=== PATIENT | female | born 1985 | race African-American/Black ===

== ENCOUNTER 2019-12-16 17:34 | Outpatient (CLI) | payer OTHER ==
[~2019-12-16] VITALS: Ht 193 cm; Wt 117.3 kg
[2019-12-16 18:10] VITALS: BP 128/76
[2019-12-16] MEDS ORDERED: PREN1TAB60 PO (19:23)
== END 2019-12-16 19:36 | disposition home or self-care (01) ==
LOC: LDOP 17:34
PROVIDERS: ATTEND Obstetrics & Gynecology
DX: O09.93 Supervision of high risk pregnancy, unspecified, third trimester (principal); O46.93 Antepartum hemorrhage, unspecified, third trimester; Z3A.37 37 weeks gestation of pregnancy
CPT/HCPCS: 59025

== ENCOUNTER 2019-12-23 13:41 | Inpatient (IN) | payer OTHER ==
[~2019-12-23] VITALS: Ht 193 cm; Wt 116.3 kg
[~2019-12-23 13:41] MED LIST: PREN1TAB60 PO
[2019-12-23 13:45] VITALS: BP 118/74
[2019-12-23] MEDS ORDERED: NEWBORN KIT ONE (17:15)
[2019-12-23] MEDS ORDERED: ONDANSETRON 2MG/ML, 2ML IVPush PRN (17:30)
[2019-12-23] MEDS ORDERED: TERBUTALINE 1 MG/ML, 1ML IVPush PRN (17:30)
[2019-12-23] MEDS ORDERED: OXYTOCIN 30U/ 0.9% NaCL 500ML 500 ML IV ONE (17:30)
[2019-12-23] MEDS ORDERED: D5%-LACTATED RINGERS 1,000 ML IV SCH (17:30)
[2019-12-23] MEDS ORDERED: TERBUTALINE 1 MG/ML, 1ML SQ PRN (17:30)
[2019-12-23] MEDS ORDERED: FENTANYL PF 100 MCG/2ML IV PRN (17:30)
[2019-12-23 17:32] LABS: BASOPHILS % (AUTO) 1 % (0-1); EOSINOPHILS % (AUTO) 1 % (1-7); LYMPHOCYTES % (AUTO) 23 % (22-44); MEAN CORPUSCULAR HEMOGLOBIN 26.8 pg (27.0-34.8); MEAN CORPUSCULAR HGB CONC 32.3 g/dL (32.4-35.8); MEAN PLATELET VOLUME 9.1 fL (7.4-10.4); MONOCYTES % (AUTO) 8 % (2-9); NEUTROPHILS % (AUTO) 68 % (42-75); PLATELET COUNT 282 x10^3/uL (130-400); RED BLOOD COUNT 4.96 x10^6/uL (3.82-5.3); RED CELL DISTRIBUTION WIDTH 13.8 % (9.6-15.2)
[2019-12-23 17:41] LABS: MD NO
[2019-12-23] MEDS: LACTATED RINGERS 1,000 ML IV SCH ×3 (18:03→23:28)
[2019-12-23] MEDS ORDERED: FENTANYL PF 100 MCG/2ML ONE ×2 (18:53→23:04)
[2019-12-23] MEDS: FENTANYL PF 100 MCG/2ML IVPush PRN ×2 (18:56→23:06)
[2019-12-23] MEDS ORDERED: LIDOCAINE 1%, 20ML ONE (19:18)
[2019-12-23] MEDS ORDERED: MISOPROSTOL 200 MCG TABLET ONE (19:19)
[2019-12-23] MEDS ORDERED: OXYTOCIN 30U/ 0.9% NaCL 500ML 500 ML ONE (19:45)
[2019-12-23] MEDS ORDERED: OXYTOCIN 30U/ 0.9% NaCL 500ML 500 ML IV PRN (21:00)
[2019-12-24] MEDS ORDERED: FENTANYL/BUPIV./NS/PF 250 ML EPIDCONT ONE (00:22)
[2019-12-24] MEDS ORDERED: BUPIVACAINE 0.25% ONE (00:22)
[2019-12-24] MEDS: LACTATED RINGERS 1,000 ML IV SCH (06:33)
[2019-12-24] MEDS ORDERED: OXYTOCIN 30U/ 0.9% NaCL 500ML 500 ML ONE (10:26)
[2019-12-24] MEDS ORDERED: ACETAMINOPHEN 325 MG TABLET PO PRN (12:00)
[2019-12-24] MEDS ORDERED: SIMETHICONE 80 MG CHEW TAB PO PRN (12:00)
[2019-12-24] MEDS ORDERED: OXYcodone/APAP 5/325MG TABLET PO PRN (12:00)
[2019-12-24] MEDS ORDERED: OXYcodone IR 5MG TABLET PO PRN (12:00)
[2019-12-24] MEDS ORDERED: MISOPROSTOL 200 MCG TABLET PR PRN (12:00)
[2019-12-24] MEDS ORDERED: ONDANSETRON 2MG/ML, 2ML IV PRN (12:00)
[2019-12-24] MEDS: OXYTOCIN 30U/ 0.9% NaCL 500ML 500 ML IV SCH ×2 (13:20→22:00)
[2019-12-24] MEDS ORDERED: IBUPROFEN 600 MG TABLET ONE (14:02)
[2019-12-24] MEDS: IBUPROFEN 600 MG TABLET PO PRN (14:05)
[2019-12-24 15:30] VITALS: BP 106/67
[2019-12-24] MEDS: PRENATAL VIT/IRON/FA 1 EACH TABLET PO SCH (17:05)
[2019-12-24 19:30] VITALS: BP 102/64
[2019-12-24 19:36] LABS: MEAN CORPUSCULAR HEMOGLOBIN 26.5 pg (27.0-34.8); MEAN CORPUSCULAR HGB CONC 31.6 g/dL (32.4-35.8); PLATELET COUNT 230 x10^3/uL (130-400); RED BLOOD COUNT 4.45 x10^6/uL (3.82-5.3); RED CELL DISTRIBUTION WIDTH 13.9 % (9.6-15.2)
[2019-12-24 20:16] LABS: MD YES
[2019-12-24 20:20] LABS: BANDS%(MANUAL) 4 % (0-7); EOS#(MANUAL) 0.17 x10^3/uL (0.0-0.4); EOS% (MANUAL) 1 % (1-7); LYMPH#(MANUAL) 2.61 x10^3/uL (1-3.4); LYMPHS% (MANUAL) 15 % (22-44); MONOS#(MANUAL) 1.22 x10^3/uL (0.3-2.7); MONOS% (MANUAL) 7 % (2-9); SEGS% (MANUAL) 73 % (42-75)
[2019-12-24 20:21] LABS: <PLATELET ESTIMATE> ADEQUATE; <PLT MORPHOLOGY> NORMAL PLT MORPH; HYPOCHROMIA 1+
[2019-12-25 00:30] VITALS: BP 110/66
[2019-12-25] MEDS: DOCUSATE 100 MG CAPSULE PO PRN ×2 (04:34→22:07)
[2019-12-25 04:41] VITALS: BP 107/67
[2019-12-25] MEDS: IBUPROFEN 600 MG TABLET PO PRN ×3 (05:43→22:07)
[2019-12-25] MEDS: OXYTOCIN 30U/ 0.9% NaCL 500ML 500 ML IV SCH (08:00)
[2019-12-25 08:30] VITALS: BP 122/75
[2019-12-25] MEDS: PRENATAL VIT/IRON/FA 1 EACH TABLET PO SCH (17:43)
[2019-12-25 19:39] VITALS: BP 118/67
[2019-12-26] MEDS: IBUPROFEN 600 MG TABLET PO PRN ×2 (04:15→10:12)
[2019-12-26 07:30] VITALS: BP 124/80
[2019-12-26] MEDS ORDERED: IBUP-1222 PO (08:07)
[2019-12-26] MEDS: PRENATAL VIT/IRON/FA 1 EACH TABLET PO SCH (09:05)
[2019-12-26] MEDS: DOCUSATE 100 MG CAPSULE PO PRN (09:05)
== END 2019-12-26 14:00 | disposition home or self-care (01) | DRG 807 ==
LOC: LDOP 13:41 → LDIP 17:14 → 2NW 12-24 15:25
PROVIDERS: ADMIT Obstetrics & Gynecology; ATTEND Obstetrics & Gynecology
PROC: 0HQ9XZZ Repair Perineum Skin, External Approach (ICD-10-PCS; principal; 2019-12-24)
PROC: 10E0XZZ Delivery of Products of Conception, External Approach (ICD-10-PCS; 2019-12-24)
PROC: 3E0R3BZ Introduction of Anesthetic Agent into Spinal Canal, Percutaneous Approach (ICD-10-PCS; 2019-12-24)
PROC: 00HU33Z Insertion of Infusion Device into Spinal Canal, Percutaneous Approach (ICD-10-PCS; 2019-12-24)
PROC: 10907ZC Drainage of Amniotic Fluid, Therapeutic from Products of Conception, Via Natural or Artificial Opening (ICD-10-PCS; 2019-12-24)
DX: O69.81X0 Labor and delivery complicated by cord around neck, without compression, not applicable or unspecified (principal); Z37.0 Single live birth; O71.82 Other specified trauma to perineum and vulva; O70.0 First degree perineal laceration during delivery; Z3A.38 38 weeks gestation of pregnancy; Z20.828 Contact with and (suspected) exposure to other viral communicable diseases
CPT/HCPCS: 36415; J7121; 76819; 85025; 86592; 86850; 86900; G0378; J3010; J2590; J7120